=== PATIENT | female | born 1945 | race Caucasian/White ===

== ENCOUNTER → 2016-06-04 | Outpatient (CLI) | payer OTHER, MEDICARE ==
[~2016-06-04] MED LIST: BIOT1CAP3 PO; CALC600T9 PO; LORA10CA2 PO; MINO100T PO; MULT-506 PO; NAPR1TAB9 PO; NXM/40 PO; POLYSOL4 OPB; ZCR10 PO; [UNRECOGNIZED DRUG - CODE] TOP; calcium citrate PO; diclofenac gel TOP; vitamin d PO
--- NOTE | 2016-06-04 16:40 | MAMMOGRAPHY REPORT ---
BILATERAL DIGITAL SCREENING MAMMOGRAM WITH CAD: 06/04/2016 CLINICAL HISTORY: Routine screening. Patient has no complaints. TECHNIQUE: Bilateral CC and MLO views were obtained. A repeat right MLO view was obtained after jared cement of a circular mole marker in the posterior breast. Current study was also evaluated with a Sqorduter Aided Detection (CAD) system. COMPARISON: Comparison is made to exams dated: 03/29/2015 mammogram, 03/23/2014 mammogram, 03/17/2013 mammogram, 03/04/2012 mammogram, 02/18/2011 mammogram, and 02/15/2010 mammogram - [facility]. BREAST COMPOSITION: The tissue of both breasts is almost entirely fatty. FINDINGS: No suspicious mass, architectural distortion or cluster of microcalcifications is seen. IMPRESSION: ACR BI-RADS CATEGORY 1: NEGATIVE There is no mammographic evidence of malignancy. A 1 year screening mammogram is recommended. The p atient will receive written notification of the results. Approximately 10% of breast cancers are not detected with mammography. A negative mammographic repor t should not delay biopsy if a clinically suggestive mass is present. Merlene Ac M.D. ay/:06/04/2016 16:20:30 Notching Press Operator: Judit SHELTON(Jessica)([place]), [facility] letter sent: Normal 1/2 BI-RADS Code: ACR BI-RADS Category 1: Negative
== END | disposition home or self-care (01) ==
LOC: C.MAMM 14:15
PROVIDERS: ATTEND Obstetrics & Gynecology
DX: Z12.31 Encounter for screening mammogram for malignant neoplasm of breast (principal)

== ENCOUNTER → 2016-06-20 | Outpatient (CLI) | payer OTHER, MEDICARE ==
[2016-06-20 12:37] LABS: CALCIUM 9.2 mg/dl (8.5-10.1)
[2016-06-20 12:41] LABS: CREATININE 0.71 mg/dl (0.60-1.20)
[2016-06-20 14:08] LABS: CALCIUM URINE 8.5 mg/dl
== END | disposition home or self-care (01) ==
LOC: C.LAB1850 10:45
PROVIDERS: ATTEND Internal Medicine Endocrinology, Diabetes & Metabolism
DX: M85.80 Other specified disorders of bone density and structure, unspecified site (principal); D49.7 Neoplasm of unspecified behavior of endocrine glands and other parts of nervous system

== ENCOUNTER → 2016-06-24 | Day surgery (SDC) | payer OTHER, MEDICARE ==
[~2016-06-24] VITALS: Ht 163.8 cm; Wt 94.0 kg
[~2016-06-24] MED LIST changes: +ZOLEDRONIC ACID INJ 5 MG in EMPTY BAG 0 ML IV SCH; +[UNRECOGNIZED DRUG - REMARK] SCH
[2016-06-24 11:05] VITALS: BP 124/77; PULSE 61; TEMP 36.6; O2SAT 97; Ht 163.8 cm; Wt 94.0 kg
[2016-06-24 11:37] VITALS: BP 186/88; PULSE 74; TEMP 37; O2SAT 99
[2016-06-24 11:55] VITALS: BP 178/98
== END | disposition home or self-care (01) ==
LOC: C.MTU 10:12
PROVIDERS: ATTEND Internal Medicine Endocrinology, Diabetes & Metabolism
DX: M81.0 Age-related osteoporosis without current pathological fracture (principal)

== ENCOUNTER → 2017-06-11 | Outpatient (CLI) | payer OTHER, MEDICARE ==
[~2017-06-11] MED LIST changes: -MINO100T PO; -ZOLEDRONIC ACID INJ 5 MG in EMPTY BAG 0 ML IV SCH; -[UNRECOGNIZED DRUG - CODE] TOP; -[UNRECOGNIZED DRUG - REMARK] SCH
--- NOTE | 2017-06-12 07:56 | MAMMOGRAPHY REPORT ---
BILATERAL DIGITAL SCREENING MAMMOGRAM TOMOSYNTHESIS WITH CAD: 06/11/2017 CLINICAL HISTORY: Routine screening. Patient has no complaints. TECHNIQUE: Breast tomosynthesis in addition to standard 2D mammography was performed. Current study was also evaluated with a Computer Aided Detection (CAD) system. COMPARISON: Comparison is made to exams dated: 06/04/2016 mammogram, 03/29/2015 mammogram, 03/23/2014 ma mmogram, 03/17/2013 mammogram, 03/04/2012 mammogram, and 02/18/2011 mammogram - [facility]. BREAST COMPOSITION: The tissue of both breasts is almost entirely fatty. FINDINGS: No suspicious masses, calcifications, or areas of architectural distortion are noted in ei ther breast. There has been no significant interval change compared to prior exams. IMPRESSION: ACR BI-RADS CATEGORY 1: NEGATIVE There is no mammographic evidence of malignancy. A 1 year screening mammogram is recommended. The pa tient will receive written notification of the results. Approximately 10% of breast cancers are not detected with mammography. A negative mammographic report should not delay biopsy if a clinically suggestive mass is present. Nuria Barrett M.D. /:06/11/2017 14:39:58 Ore Dressing Engineer: Shahida SHELTON(Jessica)(M), [facility] letter sent: Normal 1/2 BI-RADS Code: ACR BI-RADS Category 1: Negative
== END | disposition home or self-care (01) ==
LOC: C.MAMM 14:03
PROVIDERS: ATTEND Obstetrics & Gynecology
DX: Z12.31 Encounter for screening mammogram for malignant neoplasm of breast (principal)

== ENCOUNTER → 2017-09-23 | Outpatient (CLI) | payer OTHER, MEDICARE ==
[~2017-09-23] MED LIST changes: +OPTIRAY 320 IV PRN
--- NOTE | 2017-09-23 11:45 | DIAGNOSTIC IMAGING REPORT ---
CT ABD/PELVIS COMBO CLINICAL HISTORY: D49.7 adrenal neoplasm. COMPARISON STUDY: September 25, 2015 TECHNIQUE: Noncontrast images were obtained through the upper abdomen. The patient was then scanned in a dynamic helical fashion during intravenous administration of 119 cc of Optiray 320. Portal phase images to the abdomen and pelvis were acquired. 15 minute delayed images were acquired through the adrenal glands. A dose lowering technique was utilized adhering to the principles of ALARA. CT DOSE: 2128.97 mGycm FINDINGS: Lower chest: There is a small hiatal hernia. Liver: No focal hepatic masses are visualized. There is mild central biliary ductal prominence, likely secondary to prior cholecystectomy. Gallbladder: Surgically absent Spleen: Normal in size and attenuation. Pancreas: Unremarkable. Adrenal glands: There is a 2.5 cm left adrenal nodule. This has a precontrast attenuation value of 2 Hounsfield units. This is consistent with an adenoma. There is also a stable 11 mm right adrenal adenoma Kidneys: There is a 12 mm hyperdense upper pole left renal cyst. There are tiny subcentimeter renal hypodensities which are too small to characterize but likely represent cysts. No renal calculi are visualized. Bowel: There are no transition zones indicate bowel obstruction. The appendix appears normal. There is no acute diverticulitis. There is moderate stool present throughout the colon. Peritoneum: There is no intraperitoneal free air or abdominal ascites. Vasculature: The abdominal aorta is normal in course and caliber. Adenopathy: None. Pelvic viscera: The bladder, and pelvic viscera are unremarkable. Skeletal structures: No destructive osseous lesions are seen. IMPRESSION: 1. Stable adrenal adenomas 2. 12 mm hyperdense upper pole left renal cyst 3. No evidence of bowel obstruction. No evidence of free air 4. Normal appendix. No evidence of acute diverticulitis. Electronically signed by: Chau Castro M.D. 09/23/2017 11:44 AM Dictated Date/Time: 09/23/2017 11:36 AM
== END | disposition home or self-care (01) ==
LOC: C.CTS 11:02
PROVIDERS: ATTEND Urology
DX: N28.1 Cyst of kidney, acquired (principal); D35.00 Benign neoplasm of unspecified adrenal gland

== ENCOUNTER → 2017-10-15 | Outpatient (CLI) | payer OTHER, MEDICARE ==
[~2017-10-15] MED LIST changes: -OPTIRAY 320 IV PRN
== END | disposition home or self-care (01) ==
LOC: C.PAPS 18:11
PROVIDERS: ATTEND Obstetrics & Gynecology
DX: Z12.4 Encounter for screening for malignant neoplasm of cervix (principal)

== ENCOUNTER → 2017-10-15 | Outpatient (CLI) | payer OTHER, MEDICARE | END | disposition home or self-care (01) | LOC: C.LABSPEC 16:33 | PROVIDERS: ATTEND Obstetrics & Gynecology | DX: N89.8 Other specified noninflammatory disorders of vagina (principal) ==